=== PATIENT | female | born 1970 | race Caucasian/White ===

== ENCOUNTER 2019-04-28 09:04 | Observation (INO) | payer BC ==
[~2019-04-28] VITALS: Ht 144.8 cm; Wt 92.8 kg
[~2019-04-28 09:04] MED LIST: CLARITIN-D 121 EACH PO; FLUO10 PO; Flonase 0.05% N16 GM; LEVSOD50 PO; Mucinex600 MG PO
[2019-04-28] MEDS ORDERED: LEVO-T100 MC1 PO (09:27)
[2019-04-28] MEDS ORDERED: ZOLP10 PO (09:28)
[2019-04-28] MEDS ORDERED: PROZAC40 MG PO (09:28)
[2019-04-28 09:52] LABS: BASOPHILS ABSOLUTE AUTO 0.02 K/mm3 (0.00-0.23); BASOPHILS PERCENT AUTO 0 % (0-2); EOSINOPHILS ABSOLUTE AUTO 0.01 K/mm3 (0.00-0.68); EOSINOPHILS PERCENT AUTO 0 % (0-6); Hematocrit 38.8 % (33.0-51.0); Hemoglobin 12.2 g/dL (11.5-16.0); IMMATURE GRAN ABSOLUTE AUTO 0.05 K/mm3 (0.00-0.10); IMMATURE GRAN PERCENT AUTO 1 % (0-1); LYMPHOCYTES ABSOLUTE AUTO 1.14 K/mm3 (0.84-5.20); LYMPHOCYTES PERCENT AUTO 11 % (21-46); MONOCYTES ABSOLUTE AUTO 0.21 K/mm3 (0.16-1.47); MONOCYTES PERCENT AUTO 2 % (4-13); Mean Corpuscular HGB 29.9 pg (26.0-34.0); Mean Corpuscular HGB Conc 31.4 g/dL (31.5-36.5); Mean Corpuscular Volume 95 fL (80-100); Mean Platelet Volume 10.3 fL (9.1-12.4); NEUTROPHILS ABSOLUTE AUTO 8.62 K/mm3 (1.96-9.15); NEUTROPHILS PERCENT AUTO 86 % (41-73); Platelet Count 257 K/mm3 (150-400); RDW Coefficient Variation 13.1 % (11.7-14.2); RDW Standard Deviation 44.9 fL (35.1-46.3); Red Blood Cell Count 4.08 M/mm3 (3.80-5.20); White Blood Cell Count 10.05 K/mm3 (4.00-11.30)
[2019-04-28 10:13] LABS: Alanine Aminotransfer (ALT/SGP 25 U/L (12-78); Albumin, Blood 3.6 g/dL (3.4-5.0); Albumin/Globulin Ratio 0.9 (0.8-1.8); Alk Phos 63 U/L (50-136); Anion Gap 7 mmol/L (6-16); Aspartate Aminotrans (AST/SGOT 16 U/L (12-37); Bilirubin, Total 0.4 mg/dL (0.1-1.0); Blood Urea Nitrogen 15 mg/dL (8-24); Bun/Creatinine Ratio 23.2 (12.0-20.0); CO2, Blood 24 mmol/L (21-32); Calcium, Blood 8.5 mg/dL (8.5-10.1); Chloride, Blood 107 mmol/L (98-108); Creatinine, Blood 0.65 mg/dL (0.40-1.00); Globulin, Blood 4.2 g/dL (2.2-4.0); Glomerular Filtration Rate >60 (60-); Glucose, Blood 135 mg/dL (70-99); Potassium, Blood 3.8 mmol/L (3.5-5.5); Sodium, Blood 138 mmol/L (136-145); Total Protein, Blood 7.8 g/dL (6.4-8.2); Troponin I <0.015 ng/mL (0.000-0.040)
[2019-04-28] MEDS ORDERED: Ventolin/Prove6.7 GM INH (13:43)
[2019-04-28] MEDS ORDERED: THERA1 EACH PO (14:20)
[2019-04-28] MEDS ORDERED: Prednisone10 MG PO (14:22)
[2019-04-28] MEDS ORDERED: Monodox100 MG PO (14:23)
[2019-04-28] MEDS ORDERED: LOSARTAN-HCTZ1 EACH PO (15:48)
--- NOTE | 2019-04-28 16:44 | NUR ---
SHE HAS BEEN ADMITTED TO [facility] SHE IS A&O AND UP AD FELY, IN FACT TOOK ONE WALK IN THE [place] SO FAR. SHE WILL RECEIVE HER 2ND DOSE OF IV LASIX SOON. SHE C/O LEG CRAMPS MOSTLY, BUT ALSO SOME ABD CRAMPS, BACK DISCOMFORT AND A H/A. ONE FRIEND WAS WITH HER ON ARRIVAL TO THE UNIT AND 2 MORE JUST VISITED. ADMISSION PROCESS FINISHED. I SPOKE WITH DR. DELVALLE ABOUT HER MED REC. AND HER COMPLAINTS. ORDERS RECEIVED. APICAL IS IRREGULAR WITH A VARIABLE RATE. TELE SHOWS NSR/ST WITH SOME PAC'S AND A BBB. WILL MONITOR I&O AND DAILY WGTS.
--- NOTE | 2019-04-28 18:26 | NUR ---
GOT A SECOND CALL FROM THE [facility] POLICY VALUE CALCULATOR FOR SVT. NOTIFIED. WILL GIVE LOPRESSOR.
--- NOTE | 2019-04-28 18:39 | NUR ---
ORDER ENTERED. SHE HAD JUST GOTTEN UP TO THE BATHROOM WHEN HER SVT RETURNED. SHE FELT A LITTLE DIZZY. SHE FEELS BETTER NOW. BLOWING HARD WITH HER FINGER IN HER MOUTH DID NOT WORK. WILL GIVE LOPRESSOR.
--- NOTE | 2019-04-28 22:52 | NUR ---
@1999- RECEIVED CALL FROM TELE THAT PT. IN SVT ON/OFF W/HR OF 120-130'S. POST 1 HOUR OF RECEIVING LOPRESSOR. NOTIFED KATHY SPEARS NP. ORDER PUT IN FOR ANOTHER ONE TIME DOSE OF LOPRESSOR. PT. ASYMPTOMATIC. WILL CONT TO MONITOR.
--- NOTE | 2019-04-28 22:57 | NUR ---
@2030- SECOND DOSE OF LOPRESSOR GIVEN PER ORDER, PT. TOLERATED WELL. PER TELE PT. HR DOWN= 60-80'S W/OCCASIONAL SPURTS OF SVT IN THE 120'S, BUT NO LONGER THAN 1 MINUTE. PT. REMAINS ASYPTOMATIC. WILL CONT TO MONITOR.
--- NOTE | 2019-04-28 23:23 | NUR ---
PT. RESTING COMFORTABLY IN BED, NO APPARENT DISTRESS NOTED. PT. WAS SITTING UP EARLIER EATING A TURKEY SANDWICH. ASYMPTOMATIC. SLEEP AID GIVEN PER PT. REQUEST. DENIES PAIN OR DISCOMFORT AT THIS TIME. CALL LIGHT WITHIN REACH, SIDE RAILS UP X2. WILL CONT TO MONITOR.
--- NOTE | 2019-04-29 01:44 | NUR ---
PER MEDICAL RECORDS COORDINATOR PT. WITH AVERAGE HR OF 60'S. STATES PT. HAS SPURTS OF SVT EVERY FEW MINUTES, 2-15 BEATS AND PVC'S. PT. ASYMPTOMATIC, VSS. DR. PINA MADE AWARE, ORDER TO CONT CARDIAC MONITORING.
--- NOTE | 2019-04-29 04:48 | NUR ---
SHIFT SUMMARY- PT. A&O, PLEASANT AND COOPERATIVE WITH CARE. PT. ABLE TO FALL ASLEEP AFTER MEDICATED WITH SLEEP AID. PT. HR REMAINS IN THE 60'S W/PVCS AND SMALL SPURTS OF SVT EVERY FEW MINUTES PER REPAIRER SCREEN CRUSHER. PT. HAS BEEN ASYMPTOMATIC T/O THE SHIFT, NO APPARENT DISTRESS NOTED. CALL LIGHT WITHIN REACH AND SIDE RAILS UP X2. WILL CONT TO MONITOR.
[2019-04-29 05:21] LABS: Anion Gap 7 mmol/L (6-16); Blood Urea Nitrogen 19 mg/dL (8-24); Bun/Creatinine Ratio 23.7 (12.0-20.0); CO2, Blood 26 mmol/L (21-32); Calcium, Blood 8.7 mg/dL (8.5-10.1); Chloride, Blood 108 mmol/L (98-108); Glomerular Filtration Rate >60 (60-); Glucose, Blood 103 mg/dL (70-99); Sodium, Blood 141 mmol/L (136-145)
--- NOTE | 2019-04-29 06:39 | NUR ---
PER ELECTRICAL DESIGN ENGINEER PT. WITH 6 BEAT RUN OF SVT, ZK=[phone], BUT BACK DOWN TO THE 50'S. NOTIFIED DR. PINA, ORDERED A MAGNESIUM. LAB WNL, PHYSICIAN MADE AWARE. NO NEW ORDERS. PT. CONTS TO BE ASYMPTOMATIC. WILL CONT TO MONITOR.
--- NOTE | 2019-04-29 17:14 | NUR ---
Initial spiritual care note: Per admit trigger, I met with Francia to offer education regarding advanced directives. She began to tell me of numerous losses in her life this year. she cared for both parents as they of cancer. A favorite Aunt also of cancer this year. She moved to [place] from [place] to care for her parents. No family local. Friends and neighbors are supportive. She admits she has been overwhelmed by grief. Francia and I had a lengthy conversation. She responded well to bereavement education and rehabilitation counselor. She also appeared to benefit from spiritual direction and prayer. I recommended seeking rehabilitation counselor for grief, and provided information on several grief groups/counseling opportunities. Francia understands that an AD would be beneficial and would like her aunt in [place] to be her MPOA. She admits fear regarding her life-long cardiac issues and is very interested in doing what needs to be done to live a long and healthy life. Francia is personable, intelligent, and self-aware. We had an easy rapport. She will benefit from a clear direction for her cardiac problem and on-going bereavement rehabilitation counselor. I will remain available.
--- NOTE | 2019-04-29 18:04 | NUR ---
SHE HAS HAD BURSTS OF SVT TODAY, BRADYCARDIA, AND 2 MIN. SUSTAINED SVT IN THE 120'S OR 130'S. SHE HAD HER FIRST DOSE OF COREG THIS MORNING AND A HIGHER DOSE OF COREG AT DINNER TIME. SHE HAS HAD A LITTLE DIZZINESS TODAY BUT ALL HER ARRYTHMIAS HAVE MOSTLY BEEN ASYMPTOMATIC. SHE IS INDEPENDENT IN THE ROOM.ELECTROLYTES, INCLUDING MG ARE WNL.IV DIURESIS WITH LASIX CONTINUES. CARPENTER MAINTENANCE CONSULTED TODAY.
[2019-04-30 05:23] LABS: Anion Gap 9 mmol/L (6-16); Blood Urea Nitrogen 23 mg/dL (8-24); CO2, Blood 25 mmol/L (21-32); Chloride, Blood 105 mmol/L (98-108); Creatinine, Blood 0.74 mg/dL (0.40-1.00); Glomerular Filtration Rate >60 (60-); Glucose, Blood 95 mg/dL (70-99); Potassium, Blood 3.9 mmol/L (3.5-5.5); Sodium, Blood 139 mmol/L (136-145)
--- NOTE | 2019-04-30 06:15 | NUR ---
SUPERVISOR LONG GOODS SUMMARY Patient hoping to go home today, although daunted by new CHF exacerbation. states she is breathing "200" percent better than when she got here. Lung sounds diminished all, AP regular with very sight murmer. generalized non pitting edema, with 1+legs and 2+ ankles and feet. No SOB noted. Minor headache treated with tylenol resolved.
[2019-04-30] MEDS ORDERED: CARV6.25 PO (08:06)
[2019-04-30] MEDS ORDERED: FURO40 PO (08:06)
[2019-04-30] MEDS ORDERED: LOSA50 PO (08:06)
[2019-04-30] MEDS ORDERED: DIGOX250 MCG PO (10:09)
--- NOTE | 2019-04-30 10:34 | NUR ---
DISCHARGE INSTRUCTIONS GIVEN TO PATIENT VERBALLY AND A PRINTED COPY. EDUCATIONAL MATERIAL PROVIDED REGARDING HEART FAILURE AND THE NEW MEDICATIONS THE PATIENT IS TAKING. PATIENT HAS NOT BEEN CLEARED TO GO HOME BY THE PEDIATRIC OCCUPATIONAL THERAPIST YET THE PEDIATRIC OCCUPATIONAL THERAPIST WANTS THE PATIENT TO HAVE AN IV DOSE OF DIGOXIN FIRST AND WAIT TWO HOURS TO DISCHARGE AFTER MEDICATION GIVEN. WILL D/C TELE AND IV RIGHT BEFORE DISCHARGE.
--- NOTE | 2019-04-30 10:53 | NUR ---
REFERAL PACKET FAXED TO [facility] FOR LABORER AMMUNITION ASSEMBLY.
--- NOTE | 2019-04-30 12:24 | NUR ---
PATIENT GIVEN IV DIGOXIN. PER SUPERVISOR CUTTING AND SEWING ROOM THE PATIENT IS TO REMAIN IN THE HOSPITAL FOR 2 HOURS S/P ADMINISTRATION PRIOR TO DISCHARGING HOME. PATIENT TO DISCHARGE AT ABOUT 2PM.
--- NOTE | 2019-04-30 13:31 | NUR ---
TELE MONITOR REMOVED AND RETURNED TO PCU. IV DISCONTINUED. PATIENT GETTING SELF READY TO DISCHARGE HOME. FRIEND TO TRANSPORT PATIENT HOME.
--- NOTE | 2019-04-30 14:24 | NUR ---
PATIENT DISCHARGED HOME BY FRIEND. I ASSISTED PATIENT TO VEHICLE IN WHEEL CHAIR. ALL PATIENTS' BELONGINGS ARE WITH HER.
== END 2019-04-30 14:11 | disposition home or self-care (01) ==
LOC: ER 09:04 → MEDS 09:05 → ENPENDDIS 04-30 08:18 → MEDS 04-30 14:11
PROVIDERS: Emergency Medicine; ADMIT Hospitalist
DX: I11.0 Hypertensive heart disease with heart failure (principal); I50.21 Acute systolic (congestive) heart failure; I47.1 Supraventricular tachycardia; Q24.9 Congenital malformation of heart, unspecified; Q22.1 Congenital pulmonary valve stenosis; E03.9 Hypothyroidism, unspecified; F41.9 Anxiety disorder, unspecified; E66.9 Obesity, unspecified; Z68.41 Body mass index [BMI] 40.0-44.9, adult; Z79.51 Long term (current) use of inhaled steroids; Z79.899 Other long term (current) drug therapy
CPT/HCPCS: 36415; 80048; 80053; 83735; 83880; 84484; 85025; 93005; 93010; 93306; 94640; 94760; 96372; 96372-59; 96374; 96375; 96376; 99285-25; A9270; G0378; J1160; J1650; J1940

== ENCOUNTER 2020-03-04 18:12 | Emergency (ER) | payer BC ==
[~2020-03-04] VITALS: Ht 149.9 cm; Wt 92.5 kg
[~2020-03-04 18:12] MED LIST changes: -FURO20 PO; -POTA10T PO; -ZOLP5 PO
[2020-03-04] MEDS ORDERED: POTA10T PO (18:32)
[2020-03-04] MEDS ORDERED: ZOLP5 PO (18:33)
[2020-03-04] MEDS ORDERED: FURO20 PO (20:51)
== END 2020-03-04 22:33 | disposition home or self-care (01) ==
LOC: ER 18:12
DX: I11.0 Hypertensive heart disease with heart failure (principal); I50.1 Left ventricular failure, unspecified; E03.9 Hypothyroidism, unspecified; F41.9 Anxiety disorder, unspecified; Z79.899 Other long term (current) drug therapy
CPT/HCPCS: 71046; 93005; 93010; 99285-25

== ENCOUNTER → 2020-03-04 | Outpatient (CLI) | payer BC ==
[~2020-03-04] MED LIST changes: +CARV6.25 PO; +DIGOX250 MCG PO; +FURO20 PO; +FURO40 PO; +LEVO-T100 MC1 PO; +LOSA50 PO; +LOSARTAN-HCTZ1 EACH PO; +Monodox100 MG PO; +POTA10T PO; +PROZAC40 MG PO; +Prednisone10 MG PO; +THERA1 EACH PO; +Ventolin/Prove6.7 GM INH; +ZOLP10 PO; +ZOLP5 PO
[2020-03-04 18:17] LABS: BASOPHILS ABSOLUTE AUTO 0.04 K/mm3 (0.00-0.23); BASOPHILS PERCENT AUTO 0 % (0-2); EOSINOPHILS ABSOLUTE AUTO 0.29 K/mm3 (0.00-0.68); EOSINOPHILS PERCENT AUTO 2 % (0-6); Hematocrit 37.3 % (33.0-51.0); Hemoglobin 12.1 g/dL (11.5-16.0); IMMATURE GRAN ABSOLUTE AUTO 0.02 K/mm3 (0.00-0.10); IMMATURE GRAN PERCENT AUTO 0 % (0-1); LYMPHOCYTES ABSOLUTE AUTO 3.69 K/mm3 (0.84-5.20); LYMPHOCYTES PERCENT AUTO 31 % (21-46); MONOCYTES PERCENT AUTO 7 % (4-13); Mean Corpuscular HGB 29.7 pg (26.0-34.0); Mean Corpuscular HGB Conc 32.4 g/dL (31.5-36.5); Mean Corpuscular Volume 91 fL (80-100); Mean Platelet Volume 10.8 fL (9.1-12.4); NEUTROPHILS ABSOLUTE AUTO 7.17 K/mm3 (1.96-9.15); NEUTROPHILS PERCENT AUTO 59 % (41-73); Platelet Count 295 K/mm3 (150-400); RDW Coefficient Variation 13.5 % (11.7-14.2); RDW Standard Deviation 45.7 fL (35.1-46.3); Red Blood Cell Count 4.08 M/mm3 (3.80-5.20); White Blood Cell Count 12.11 K/mm3 (4.00-11.30)
[2020-03-04 18:40] LABS: Alanine Aminotransfer (ALT/SGP 17 U/L (12-78); Albumin, Blood 3.9 g/dL (3.4-5.0); Albumin/Globulin Ratio 0.9 (0.8-1.8); Alk Phos 73 U/L (40-126); Anion Gap 8 mmol/L (6-16); Aspartate Aminotrans (AST/SGOT 14 U/L (12-37); Bilirubin, Total 0.2 mg/dL (0.1-1.0); Blood Urea Nitrogen 17 mg/dL (8-24); Bun/Creatinine Ratio 22.4 (12.0-20.0); CO2, Blood 30 mmol/L (21-32); Calcium, Blood 9.1 mg/dL (8.5-10.1); Chloride, Blood 101 mmol/L (98-108); Creatinine, Blood 0.76 mg/dL (0.40-1.00); Globulin, Blood 4.2 g/dL (2.2-4.0); Glomerular Filtration Rate >60 (60-); Glucose, Blood 93 mg/dL (70-99); Potassium, Blood 4.1 mmol/L (3.5-5.5); Sodium, Blood 139 mmol/L (136-145); Thyroid Stimulating Hormone 2.848 uIU/mL (0.360-4.800); Total Protein, Blood 8.1 g/dL (6.4-8.2)
== END | disposition home or self-care (01) ==
LOC: LAB EV 18:08 → LAB SHORT 18:08
PROVIDERS: Chiropractor
DX: R06.09 Other forms of dyspnea (principal); R63.5 Abnormal weight gain
CPT/HCPCS: 80053; 83880; 84443; 84484; 85025; 85379

== ENCOUNTER → 2021-06-03 | Outpatient (CLI) | payer BC ==
[~2021-06-03] MED LIST changes: +FURO20 PO; +POTA10T PO; +ZOLP5 PO
== END ==
LOC: LAB 14:46 → LAB SHORT 14:46
DX: H92.02 Otalgia, left ear (principal)
CPT/HCPCS: 87070; 87077; 87186; 87205

== ENCOUNTER → 2021-09-26 | Outpatient (CLI) | payer BC | END | disposition home or self-care (01) | LOC: LAB SHORT 17:00 | DX: R30.0 Dysuria (principal) | CPT/HCPCS: 87086 ==

== ENCOUNTER 2021-10-19 22:17 | Emergency (ER) | payer OTHER ==
[~2021-10-19] VITALS: Ht 149.9 cm; Wt 93.0 kg
[2021-10-19 23:02] LABS: BASOPHILS ABSOLUTE AUTO 0.02 K/mm3 (0.00-0.23); BASOPHILS PERCENT AUTO 0 % (0-2); EOSINOPHILS PERCENT AUTO 0 % (0-6); Hematocrit 43.5 % (33.0-51.0); Hemoglobin 14.3 g/dL (11.5-16.0); IMMATURE GRAN ABSOLUTE AUTO 0.04 K/mm3 (0.00-0.10); IMMATURE GRAN PERCENT AUTO 0 % (0-1); LYMPHOCYTES ABSOLUTE AUTO 2.29 K/mm3 (0.84-5.20); LYMPHOCYTES PERCENT AUTO 21 % (21-46); MONOCYTES ABSOLUTE AUTO 0.24 K/mm3 (0.16-1.47); MONOCYTES PERCENT AUTO 2 % (4-13); Mean Corpuscular HGB 31.4 pg (26.0-34.0); Mean Corpuscular HGB Conc 32.9 g/dL (31.5-36.5); Mean Corpuscular Volume 96 fL (80-100); Mean Platelet Volume 10.4 fL (9.1-12.4); NEUTROPHILS ABSOLUTE AUTO 8.45 K/mm3 (1.96-9.15); NEUTROPHILS PERCENT AUTO 77 % (41-73); Platelet Count 280 K/mm3 (150-400); RDW Coefficient Variation 12.8 % (11.7-14.2); RDW Standard Deviation 45.1 fL (35.1-46.3); Red Blood Cell Count 4.55 M/mm3 (3.80-5.20); White Blood Cell Count 11.04 K/mm3 (4.00-11.30)
[2021-10-19 23:20] LABS: Albumin/Globulin Ratio 0.9 (0.8-1.8); Bilirubin, Total 0.3 mg/dL (0.1-1.0); Bun/Creatinine Ratio 20.6 (12.0-20.0); Calcium, Blood 9.5 mg/dL (8.5-10.1); Creatinine, Blood 0.83 mg/dL (0.40-1.00); Globulin, Blood 4.4 g/dL (2.2-4.0); Total Protein, Blood 8.4 g/dL (6.4-8.2)
[2021-10-20 03:11] LABS: Influenza A, PCR NEGATIVE (NEGATIVE); Influenza B, PCR NEGATIVE (NEGATIVE); Resp Syncytial Virus, PCR NEGATIVE (NEGATIVE); SARS-Cov-2 (COVID-19) PCR, MMC NEGATIVE (NEGATIVE)
== END 2021-10-20 04:02 | disposition home or self-care (01) ==
LOC: ER 22:17
PROVIDERS: Emergency Medicine; Student in an Organized Health Care Education/Training Program
DX: R05.9 Cough, unspecified (principal); I10 Essential (primary) hypertension; E03.9 Hypothyroidism, unspecified; Z20.822 Contact with and (suspected) exposure to COVID-19
CPT/HCPCS: 0241U; 36415; 80053; 84484; 85025; 85379; 93005; 93010; 99283-25

== ENCOUNTER → 2021-10-19 | Outpatient (CLI) | payer OTHER ==
[2021-10-19 08:59] LABS: BASOPHILS ABSOLUTE AUTO 0.04 K/mm3 (0.00-0.23); BASOPHILS PERCENT AUTO 0 % (0-2); EOSINOPHILS ABSOLUTE AUTO 0.22 K/mm3 (0.00-0.68); EOSINOPHILS PERCENT AUTO 2 % (0-6); Hemoglobin 13.4 g/dL (11.5-16.0); IMMATURE GRAN ABSOLUTE AUTO 0.04 K/mm3 (0.00-0.10); IMMATURE GRAN PERCENT AUTO 0 % (0-1); LYMPHOCYTES ABSOLUTE AUTO 2.63 K/mm3 (0.84-5.20); LYMPHOCYTES PERCENT AUTO 21 % (21-46); MONOCYTES ABSOLUTE AUTO 0.74 K/mm3 (0.16-1.47); MONOCYTES PERCENT AUTO 6 % (4-13); Mean Corpuscular HGB 31.8 pg (26.0-34.0); Mean Corpuscular HGB Conc 32.7 g/dL (31.5-36.5); Mean Corpuscular Volume 97 fL (80-100); Mean Platelet Volume 10.6 fL (9.1-12.4); NEUTROPHILS ABSOLUTE AUTO 8.92 K/mm3 (1.96-9.15); NEUTROPHILS PERCENT AUTO 71 % (41-73); Platelet Count 245 K/mm3 (150-400); RDW Coefficient Variation 13.2 % (11.7-14.2); Red Blood Cell Count 4.21 M/mm3 (3.80-5.20); White Blood Cell Count 12.59 K/mm3 (4.00-11.30)
[2021-10-19 09:25] LABS: Albumin, Blood 3.8 g/dL (3.4-5.0); Bilirubin, Total 0.4 mg/dL (0.1-1.0); Bun/Creatinine Ratio 15.6 (12.0-20.0); Calcium, Blood 8.6 mg/dL (8.5-10.1); Creatinine, Blood 0.77 mg/dL (0.40-1.00); Globulin, Blood 3.9 g/dL (2.2-4.0); Potassium, Blood 4.3 mmol/L (3.5-5.5); Total Protein, Blood 7.7 g/dL (6.4-8.2)
== END | disposition home or self-care (01) ==
LOC: LAB SHORT 08:49 → LAB 08:49
PROVIDERS: Physician Assistant
DX: R06.00 Dyspnea, unspecified (principal)
CPT/HCPCS: 80053; 83880; 84484; 85025

== ENCOUNTER 2022-11-13 11:09 | Observation (INO) | payer OTHER ==
[~2022-11-13] VITALS: Ht 144.8 cm; Wt 89.7 kg
[2022-11-13] VITALS (25 sets, daily range): BP systolic 75–132; BP diastolic 56–116
[2022-11-13 12:11] LABS: BASOPHILS ABSOLUTE AUTO 0.03 K/mm3 (0.00-0.23); BASOPHILS PERCENT AUTO 0 % (0-2); EOSINOPHILS ABSOLUTE AUTO 0.18 K/mm3 (0.00-0.68); EOSINOPHILS PERCENT AUTO 2 % (0-6); Hematocrit 41.4 % (33.0-51.0); Hemoglobin 13.6 g/dL (11.5-16.0); IMMATURE GRAN ABSOLUTE AUTO 0.02 K/mm3 (0.00-0.10); IMMATURE GRAN PERCENT AUTO 0 % (0-1); LYMPHOCYTES ABSOLUTE AUTO 3.41 K/mm3 (0.84-5.20); LYMPHOCYTES PERCENT AUTO 34 % (21-46); MONOCYTES ABSOLUTE AUTO 0.68 K/mm3 (0.16-1.47); MONOCYTES PERCENT AUTO 7 % (4-13); Mean Corpuscular HGB 31.9 pg (26.0-34.0); Mean Corpuscular HGB Conc 32.9 g/dL (31.5-36.5); Mean Corpuscular Volume 97 fL (80-100); Mean Platelet Volume 11.5 fL (9.1-12.4); NEUTROPHILS PERCENT AUTO 57 % (41-73); Platelet Count 241 K/mm3 (150-400); RDW Coefficient Variation 12.9 % (11.7-14.2); RDW Standard Deviation 46.1 fL (35.1-46.3); Red Blood Cell Count 4.27 M/mm3 (3.80-5.20); White Blood Cell Count 10.02 K/mm3 (4.00-11.30)
[2022-11-13 12:31] LABS: Albumin, Blood 3.7 g/dL (3.4-5.0); Albumin/Globulin Ratio 0.9 (0.8-1.8); Bilirubin, Total 0.3 mg/dL (0.1-1.0); Calcium, Blood 9.1 mg/dL (8.5-10.1); Creatinine, Blood 0.77 mg/dL (0.40-1.00); Globulin, Blood 4.1 g/dL (2.2-4.0); Potassium, Blood 4.5 mmol/L (3.5-5.5); Total Protein, Blood 7.8 g/dL (6.4-8.2)
[2022-11-13 13:22] LABS: Free Thyroxine 1.27 ng/dL (0.70-1.60); Magnesium, Blood 2.3 mg/dL (1.6-2.4)
[2022-11-13 13:24] LABS: Thyroid Stimulating Hormone 1.33 uIU/mL (0.360-4.800); Triiodothyronine, Free 2.14 pg/mL (2.18-3.98)
--- NOTE | 2022-11-13 19:20 | NUR ---
CARE ASUMPTION/ DAY SHIFT SUMMARY PT ARRIVED FROM ER AND WAS ABLE TO TRANSFER SELF FROM ER GURNEY TO ICU BED. PT ON RM AIR W SPO2 >92% MONITOR SHOWING AFIB 85-130. PT DENIES ANY SYMPTOMS W HEART RATE. BP WNL AND STABLE AT THIS TIME. ESMOLOL GTT RUNNING AT 50MCG/KG/MIN. PT IS ALERT AND ORIENTED COMMUNICATING APPROPRIATELY W STAFF. REPORT GIVEN TO NEO ALEJANDRO.
--- NOTE | 2022-11-13 20:46 | NUR ---
PATIENT AWAKE TALKING ON TELEPHONE WITH FRIENDS AND FAMILY. UP TO BSC WITH MIN ASSIST TO VOID. ESMOLOL 50 MCG DRIP CONTINUES HEART RATE UP TO 130'S AT TIMES, WHEN DOWN TO 110 ABLE TO SEE AFLUTTER. NO C/O DIZZINESS OR SOB. RT ABLE TO SET UP PATIENTS HOME CPAP FOR TONIGHT. PATIENT EDUCATED REGARDING IGNITION RISK WITH OXYGEN USE IN THE HOSPITAL, PATIENT VERBALIZED UNDERSTANDING. NO IGNITION SOURCE SEEN IN ROOM.
[2022-11-14] VITALS (40 sets, daily range): BP systolic 80–120; BP diastolic 50–88
--- NOTE | 2022-11-14 00:24 | NUR ---
PATIENT SLEEPING WITH CPAP IN PLACE. HEART RATE CONTINUES TO BE 130'S, BP 80/69 ESMOLOL ON HOLD
--- NOTE | 2022-11-14 01:40 | NUR ---
DOCTOR MINE NOTIFIED OF CONTINUED AFIB 140'S AND HYPOTENSION. WITH ESMOLOL DRIP OFF. ORDER OBTAINED TO GET EKG TO CHECK QTc. RATE DOWN TO 99-115 WHILE DOING EKG. PLAN TO GIVE AMIODARONE BOLUS NO DRIP AT THIS TIME.
[2022-11-14 04:38] LABS: BASOPHILS ABSOLUTE AUTO 0.04 K/mm3 (0.00-0.23); BASOPHILS PERCENT AUTO 0 % (0-2); EOSINOPHILS ABSOLUTE AUTO 0.23 K/mm3 (0.00-0.68); EOSINOPHILS PERCENT AUTO 2 % (0-6); Hematocrit 41.2 % (33.0-51.0); Hemoglobin 13.6 g/dL (11.5-16.0); IMMATURE GRAN ABSOLUTE AUTO 0.02 K/mm3 (0.00-0.10); IMMATURE GRAN PERCENT AUTO 0 % (0-1); LYMPHOCYTES ABSOLUTE AUTO 3.96 K/mm3 (0.84-5.20); LYMPHOCYTES PERCENT AUTO 41 % (21-46); MONOCYTES ABSOLUTE AUTO 0.76 K/mm3 (0.16-1.47); MONOCYTES PERCENT AUTO 8 % (4-13); Mean Corpuscular HGB 32.2 pg (26.0-34.0); Mean Corpuscular Volume 98 fL (80-100); Mean Platelet Volume 11.1 fL (9.1-12.4); NEUTROPHILS ABSOLUTE AUTO 4.65 K/mm3 (1.96-9.15); NEUTROPHILS PERCENT AUTO 48 % (41-73); Platelet Count 236 K/mm3 (150-400); RDW Coefficient Variation 13.2 % (11.7-14.2); RDW Standard Deviation 46.8 fL (35.1-46.3); Red Blood Cell Count 4.22 M/mm3 (3.80-5.20); White Blood Cell Count 9.66 K/mm3 (4.00-11.30)
[2022-11-14 05:10] LABS: Albumin, Blood 3.3 g/dL (3.4-5.0); Albumin/Globulin Ratio 0.9 (0.8-1.8); Bilirubin, Total 0.4 mg/dL (0.1-1.0); Bun/Creatinine Ratio 24.4 (12.0-20.0); Calcium, Blood 8.6 mg/dL (8.5-10.1); Creatinine, Blood 0.74 mg/dL (0.40-1.00); Globulin, Blood 3.6 g/dL (2.2-4.0); Potassium, Blood 4.2 mmol/L (3.5-5.5); Total Protein, Blood 6.9 g/dL (6.4-8.2)
--- NOTE | 2022-11-14 05:31 | NUR ---
SUMMARY PATIENT SLEEPING WITH HOME CPAP IN PLACE, AWAKENS TO SLIGHT STIMULI. ESMOLOL DRIP OFF DUE TO HYPOTENSION. BOLUS DOSE OF AMIO GIVEN. AFIB/FLUTTER CONTINUES WITH RATE 80-110'S OCCASIONAL PVC. HYPOTENSION CONTINUES. PATIENT UP TO BSC SEVERAL TIMES T/O NIGHT TO VOID, NO C/O SOB, OR DIZZINESS.
[2022-11-14] MEDS ORDERED: ELIQUIS5 M2 PO (09:29)
[2022-11-14] MEDS ORDERED: METO50ER PO (09:29)
--- NOTE | 2022-11-14 11:50 | NUR ---
SHIFT ASSESSMENT ASSUMED CARE OF PT @ 0700, BEDSIDE REPORT RECEIVED FROM NEO ALEJANDRO. PT ALERT AND ORIENTED, FOLLOWING COMMANDS, GREGORIO. AMBULATES WITHOUT ASSISTANCE TO BSC. DENIES CP/SOB, CURRENTLY IN A-FIB. BP STABLE. PT SEEN BY FERTILIZER SUPERVISOR-DR DA SILVA AT BEDSIDE. ECHO COMPLETE. NEW MEDICATIONS ORDERED, PT TO BE SENT HOME WITH COMMERCIAL SINGER TO WEAR FOR 4 WEEKS, THEN F/U WITH FERTILIZER SUPERVISOR. THIS NURSE AND PT CALLED [facility] TO SCHEDULE F/U, [facility] IS TO CALL PT TOMORROW TO SCHEDULE. AWAITING HOME MONITOR PLACEMENT, PT TO BE DC'D THIS AFTERNOON.
--- NOTE | 2022-11-14 13:34 | NUR ---
DISCHARGE PT REMAINS A&OX4. DENIES CP/SOB. BP WNL. A-FIB IN THE 90'S ON PLASTIC TOOL MAKER. PT DISCHARGED TO HOME. BL IV'S DC'D. HOME PLASTIC TOOL MAKER PLACED BY [facility] STAFF. PTS NEW MEDICATIONS SENT TO [facility], ALSO CALLED IN MEDICATIONS VERBALLY TO PHARMACIST. PT ADVICED TO FOLLOW UP WITH LOCKSTITCH SLEEVE MAKER IN 4 WEEKS.
== END 2022-11-14 13:45 | disposition home or self-care (01) ==
LOC: ER 11:09 → PCU 11:10 → ICUE 11:10
PROVIDERS: Student in an Organized Health Care Education/Training Program; ADMIT Internal Medicine
DX: I48.92 Unspecified atrial flutter (principal); I50.22 Chronic systolic (congestive) heart failure; E66.9 Obesity, unspecified; I47.1 Supraventricular tachycardia; F32.A Depression, unspecified; F41.9 Anxiety disorder, unspecified; E03.9 Hypothyroidism, unspecified; I11.0 Hypertensive heart disease with heart failure; I48.91 Unspecified atrial fibrillation; K21.9 Gastro-esophageal reflux disease without esophagitis; Z68.41 Body mass index [BMI] 40.0-44.9, adult
CPT/HCPCS: 36415; 71045; 80053; 83735; 83880; 84439; 84443; 84481; 85025; 85379; 93005; 93010; 93246; 94660; 94762; 96365; 96367; 96372; 96375; 99285-25; A9270; C8929; G0378; J0282; J1650; J3475; J7030; Q9957

== ENCOUNTER → 2023-03-27 | Outpatient (CLI) | payer OTHER ==
[~2023-03-27] MED LIST changes: +ELIQUIS5 M2 PO; +METO50ER PO
== END ==
LOC: LAB 08:40 → LAB SHORT 08:40
DX: L08.9 Local infection of the skin and subcutaneous tissue, unspecified (principal)
CPT/HCPCS: 87070; 87077; 87147; 87186; 87205